=== PATIENT | male | born 1965 | race African-American/Black ===

== ENCOUNTER 2016-06-14 16:06 | Emergency (ER) | payer MEDICARE, MEDICAID ==
[~2016-06-14] VITALS: Ht 175.3 cm; Wt 88.5 kg
[~2016-06-14 16:06] MED LIST: KEFLEX 500MG.500 MG PO; TYLENOL W/CODEI1 TA2 PO
--- NOTE | 2016-06-14 17:57 | Urgent Treatment Center Report ---
History of Present Issue Date/Time Seen by Provider 06/14/16 1756 Visit Reason Pt arrived:Walked Presenting Problem:ACHY ALL OVER POSSIBLE FLU , RUNNY NOSE , COUGH . STATES SYMPTOMS HAVE BEEN PRESENT FOR TWO OR THREE DAYS Location if Accident: Onset of symptoms date/time:06/11/1602/15/700 or onset unknown for: Have you (or family members/close friends) recently traveled outside the [place]? N If Yes, where/when: Have you had exposure to infectious disease within the past month? TB? Other? Specify: c/o "I think the flu". fever, bodyaches, runny nose, PND, "tickle in my throat", mild cough last 2-3 days. Denies SOA, wheezing. Lives in group housing. Unsure about flu vaccine. Doesn't take or try anything for symptoms. While here, also asking for letter stating he is disabled to help w/ SSI and [employer]. Source patient Exam Limitations no limitations ALLERGIES Coded Allergies: No Known Allergies (06/14/16) History Medical History General CAD? No Angina: No [place]: No Hypertension? No Hyperlipidemia? No CHF? No DVT? No PE? No COPD? No Asthma? No Anemia? No GERD? No Gastric ulcers? No GI Bleed? No Hernia? No Thyroid Problems? No Hypothyroidism? No CVA? No Seizures? No Diabetes? No Renal Insuffiency? No UTI? No Stones? No GB Disease: No Nephritic Syndrome? No Asplenia? No Hepatitis? No Sickle Cell Disease? No Arthritis? No Migraines? No Cataracts? No Glaucoma? No MRSA? No HIV? No TB? No Anxiety? No Depression? No Cancer? No More? Yes Additional hx: SCHIZOPHRENIA Immunization HX DT/Tetanus Unknown Surgical Hx Previous Surgery?N Social History Smoking Hx Smoker: Current Some Day Smoker Tobacco: Yes Type Cigarettes Packs/day N/A Alcohol Alcohol: Yes Review of Systems All Other Systems Reviewed and Negative Constitutional see HPI, fever (not sure how high), denies weakness Eyes denies no symptoms reported ENT nose discharge, nose congestion, throat pain (in morning and night). denies: ear pain. Respiratory see HPI Cardiovascular denies chest pain Gastrointestinal denies no symptoms reported Skin denies rash Psychiatric/Neurological denies headache Physical Exam Vital Signs Vital Signs Date Time Temp Pulse Resp B/P Pulse O2 O2 Flow FiO2 Ox Delivery Rate 06/14 1722 98.7 74 20 143/87 98 06/14 1615 98.7 74 20 143/87 98 General Appearance normal appearance, no apparent distress Eye Exam - bilateral eye normal exam Ear, Nose, Throat normal ENT inspection (except rt EAC cerumen impactio) Neck non-tender, supple Respiratory Status No: respiratory distress. Lung Sounds anterior: lungs clear. posterior: lungs clear. bilateral: lungs clear. Cardiovascular regular rate/rhythm, no murmur Neurologic alert Skin normal color, warm/dry Lymphatic no adenopathy (cervical) Medical Decision Making LABS/Meds/Orders Pt receiving controlled substance in ED? No Results/Orders Laboratory Tests 06/14/16 172: Influenza Type A Ag NOT DETECTED, Influenza Type B Ag NOT DETECTED Orders Procedure Date/time Status [facility] FLU A,B 06/14 1724 Complete Departure Departure Time of Disposition 1803 Disposition DC Home or Self Care(routine) Clinical Impression Primary Impression: Viral illness Condition STABLE Referrals Blayne Alvarado (Family) Immediately for new or worsening symptoms or if no improvement over the next [address] Alvarado for cerumen removal right ear and to discuss disability and need for letter for [facility]. We can not address that here today. Patient Instructions DI for Viral Upper Respiratory Infection -- Adult Additional Instructions Increase fluids Rest Alternate tylenol/ibuprofen as discussed for fever/pain warm salt water gargles warm fluids to drink Claritin can help w/ runny nose, PND. Declined bromfed. monitor symptoms. Seek treatment immediately for new or worsening symptoms or if no improvement over the next 48-[address] Alvarado for cerumen removal right ear. Discharge Counseling Counseled pt/family regarding diagnosis, test results, medications/RX, home care, follow up needs at 1810
--- NOTE | 2016-06-14 17:57 | Urgent Treatment Center Report ---
History of Present Issue Date/Time Seen by Provider 06/14/16 1756 Visit Reason Pt arrived:Walked Presenting Problem:ACHY ALL OVER POSSIBLE FLU , RUNNY NOSE , COUGH . STATES SYMPTOMS HAVE BEEN PRESENT FOR TWO OR THREE DAYS Location if Accident: Onset of symptoms date/time:06/11/1602/15/700 or onset unknown for: Have you (or family members/close friends) recently traveled outside the [place]? N If Yes, where/when: Have you had exposure to infectious disease within the past month? TB? Other? Specify: c/o "I think the flu". fever, bodyaches, runny nose, PND, "tickle in my throat", mild cough last 2-3 days. Denies SOA, wheezing. Lives in group housing. Unsure about flu vaccine. Doesn't take or try anything for symptoms. While here, also asking for letter stating he is disabled to help w/ SSI and [employer]. Source patient Exam Limitations no limitations ALLERGIES Coded Allergies: No Known Allergies (06/14/16) History Medical History General CAD? No Angina: No [place]: No Hypertension? No Hyperlipidemia? No CHF? No DVT? No PE? No COPD? No Asthma? No Anemia? No GERD? No Gastric ulcers? No GI Bleed? No Hernia? No Thyroid Problems? No Hypothyroidism? No CVA? No Seizures? No Diabetes? No Renal Insuffiency? No UTI? No Stones? No GB Disease: No Nephritic Syndrome? No Asplenia? No Hepatitis? No Sickle Cell Disease? No Arthritis? No Migraines? No Cataracts? No Glaucoma? No MRSA? No HIV? No TB? No Anxiety? No Depression? No Cancer? No More? Yes Additional hx: SCHIZOPHRENIA Immunization HX DT/Tetanus Unknown Surgical Hx Previous Surgery?N Social History Smoking Hx Smoker: Current Some Day Smoker Tobacco: Yes Type Cigarettes Packs/day N/A Alcohol Alcohol: Yes Review of Systems All Other Systems Reviewed and Negative Constitutional see HPI, fever (not sure how high), denies weakness Eyes denies no symptoms reported ENT nose discharge, nose congestion, throat pain (in morning and night). denies: ear pain. Respiratory see HPI Cardiovascular denies chest pain Gastrointestinal denies no symptoms reported Skin denies rash Psychiatric/Neurological denies headache Physical Exam Vital Signs Vital Signs Date Time Temp Pulse Resp B/P Pulse O2 O2 Flow FiO2 Ox Delivery Rate 06/14 1722 98.7 74 20 143/87 98 06/14 1615 98.7 74 20 143/87 98 General Appearance normal appearance, no apparent distress Eye Exam - bilateral eye normal exam Ear, Nose, Throat normal ENT inspection (except rt EAC cerumen impactio) Neck non-tender, supple Respiratory Status No: respiratory distress. Lung Sounds anterior: lungs clear. posterior: lungs clear. bilateral: lungs clear. Cardiovascular regular rate/rhythm, no murmur Neurologic alert Skin normal color, warm/dry Lymphatic no adenopathy (cervical) Medical Decision Making LABS/Meds/Orders Pt receiving controlled substance in ED? No Results/Orders Laboratory Tests 06/14/16 172: Influenza Type A Ag NOT DETECTED, Influenza Type B Ag NOT DETECTED Orders Procedure Date/time Status [facility] FLU A,B 06/14 1724 Complete Departure Departure Time of Disposition 1803 Disposition DC Home or Self Care(routine) Clinical Impression Primary Impression: Viral illness Condition STABLE Referrals Blayne Alvarado (Family) Immediately for new or worsening symptoms or if no improvement over the next [address] Alvarado for cerumen removal right ear and to discuss disability and need for letter for [facility]. We can not address that here today. Patient Instructions DI for Viral Upper Respiratory Infection -- Adult Additional Instructions Increase fluids Rest Alternate tylenol/ibuprofen as discussed for fever/pain warm salt water gargles warm fluids to drink Claritin can help w/ runny nose, PND. Declined bromfed. monitor symptoms. Seek treatment immediately for new or worsening symptoms or if no improvement over the next 48-[address] Alvarado for cerumen removal right ear. Discharge Counseling Counseled pt/family regarding diagnosis, test results, medications/RX, home care, follow up needs at 1810
[2016-06-14 18:09] VITALS: BP 143/87
== END 2016-06-14 18:09 | disposition home or self-care (01) ==
LOC: ER 16:06 → UTC 16:24
DX: J06.9 Acute upper respiratory infection, unspecified (principal); B34.9 Viral infection, unspecified